=== PATIENT | male | born 1990 | race Caucasian/White ===

== ENCOUNTER 2021-10-25 12:54 | Outpatient (CLI) | payer OTHER, SELFPAY ==
--- NOTE | 2021-10-25 13:04 | MR_ITS ---
WS: [id number] MRI LUMBAR SPINE NONCONTRAST TECHNIQUE: Sagittal T1, T2 and STIR imaging. Axial T1 and T2 imaging. CLINICAL INFORMATION: CHRONIC MID AND LOW BACK PAIN COMPARISON: None. FINDINGS: Mild lumbar curve. No acute compression. No high-grade central canal stenosis. L1-L2: Normal. L2-L3: No significant disc bulging. Spinal canal and foramen are patent. L3-L4: No significant disc bulging. Spinal canal and foramen are patent. L4-L5: Minimal annular bulging eccentric to the LEFT. LEFT eccentric disc bulge with mild LEFT forami nal narrowing. Spinal canal is patent. Impingement on the LEFT subarticular recess and traversing LEF T L5 nerve root. RIGHT foramen is patent. Mild facet arthropathy. L5-S1: No significant disc bulging. Mild facet arthropathy. Spinal canal and foramen are patent. Visualized pelvic bony structures: Normal. Paravertebral soft tissues: Normal. MR/MR lumbar spine wo con* [id number] IMPRESSION: 1. Mild lumbar curve. No acute compression. No high-grade central canal stenos is. 2. Mild annular bulging eccentric to the LEFT L4-L5 impinges the LEFT subartic ular recess and traversing LEFT L5 nerve root. Mild LEFT L4-L5 foraminal narrow ing. 3. Mild facet arthropathy L4-L5 and L5-S1. 4. No other significant findings.
--- NOTE | 2021-10-25 13:04 | MR_ITS ---
WS: [id number] MRI THORACIC SPINE WITHOUT CONTRAST TECHNIQUE: Sagittal T1, T2 and STIR imaging. Axial T2 imaging. Noncontrast imaging obtained. CLINICAL INFORMATION: CHRONIC MID AND LOW BACK PAIN COMPARISON: None. FINDINGS: Mild thoracic curve. No acute compression. No high-grade central canal stenosis. Cord signal is katty l. No significant disc extrusions or protrusions. Normal paravertebral soft tissues. Mild facet arthr opathy in the lower thoracic spine. Normal caliber thoracic aorta. MR/MR thoracic spin wo con* [id number] IMPRESSION: No acute thoracic spine findings.
== END 2021-10-25 12:55 | disposition home or self-care (01) ==
LOC: RAD 12:54
PROVIDERS: Visit Provider Emergency Medicine Emergency Medical Services
DX: M54.50 Low back pain, unspecified (principal)
CPT/HCPCS: 72146; 72148

== ENCOUNTER → 2022-03-22 08:02 | Outpatient (BNVA) | payer OTHER, SELFPAY | PROVIDERS: PCP Emergency Medicine Emergency Medical Services; Visit Provider Surgery | DX: R19.4 Change in bowel habit (principal); R19.7 Diarrhea, unspecified; R10.9 Unspecified abdominal pain | CPT/HCPCS: 99203 ==

== ENCOUNTER 2022-04-06 18:39 | Emergency (ER) | payer OTHER, SELFPAY ==
[2022-04-06 19:04] VITALS: BP 145/92; PULSE 72; RESP 14; TEMP 36.7; O2SAT 94; BMI 38.6
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
[2022-04-06 20:58] LABS: HIV 1 & 2 Antigen Non-Reactive (Non-Reactiv)
[2022-04-06 20:59] LABS: HIV 1 & 2 Antibody Non-Reactive (Non-Reactiv)
[2022-04-06 21:45] LABS: Hepatitis A Antibody IgM Non-Reactive (Nonreactive)
[2022-04-06 21:58] LABS: Hepatitis B Core AB, Total Non-Reactive (Nonreactive); Hepatitis B Surface Antigen Non-Reactive (Nonreactive); Hepatitis C Virus Antibody Non-Reactive (Nonreactive)
[2022-04-06 22:17] LABS: Hepatitis B Surface AB > 1000.0 (11.5-1000)
[2022-04-10 12:33] LABS: RPR w(Moniotor) w/REFL Titer NON-REACTIVE (NON-REACTIVE)
[2022-04-10 15:56] LABS: Hepatitis A Antibody Total REACTIVE (NON-REACTIVE)
== END 2022-04-06 20:14 | disposition home or self-care (01) ==
PROVIDERS: Emergency Provider Nurse Practitioner Family
DX: S61.451A Open bite of right hand, initial encounter (principal); Y04.1XXA Assault by human bite, initial encounter; Y99.0 Civilian activity done for income or pay
CPT/HCPCS: 86592; 86705; 86706; 86708; 86709; 86803; 87340; 87806; 99283